=== PATIENT | male | born 1940 | race African-American/Black ===

== ENCOUNTER 2016-12-19 12:37 | Inpatient (IN) | payer OTHER ==
[~2016-12-19] VITALS: Ht 177.8 cm; Wt 97.5 kg
[2016-12-19 12:45] VITALS: BP_SYST 151
[2016-12-19] MEDS ORDERED: LORazepam 2 MG/ML VIAL IVP ONE (13:00)
[2016-12-19] MEDS ORDERED: ASPIRIN 325 MG TABLET PO ONE (13:00)
[2016-12-19] MEDS ORDERED: LORazepam 2 MG/ML VIAL (FOR ER USE) ONE (13:42)
[2016-12-19 13:43] LABS: BASOPHILS # (AUTO) 0.1 K/uL (0.0-0.2); BASOPHILS % (AUTO) 0.9 % (0.0-2.0); EOSINOPHILS # (AUTO) 0.1 K/uL (0.0-0.4); EOSINOPHILS % (AUTO) 1.3 % (0.0-4.0); HEMATOCRIT 39.7 % (36-54); HEMOGLOBIN 12.7 g/dL (14.0-18.0); LYMPHOCYTES # (AUTO) 1.9 K/uL (1.0-5.5); LYMPHOCYTES % (AUTO) 25.2 % (20.5-51.5); MEAN CORPUSCULAR HEMOGLOBIN 27 pg (27-31); MEAN CORPUSCULAR HGB CONC 32 % (32-36); MEAN CORPUSCULAR VOLUME 85 fL (79.0-98.0); MONOCYTES # (AUTO) 0.8 K/uL (0.0-1.0); MONOCYTES % (AUTO) 11.1 % (1.7-9.3); NEUTROPHILS # (AUTO) 4.5 K/uL (1.8-7.7); NEUTROPHILS % (AUTO) 61.5 % (40.0-70.0); PLATELET COUNT (AUTO) 275 K/uL (130-430); RED BLOOD CELL COUNT(AUTO) 4.66 MIL/uL (4.2-6.2); RED CELL DISTRIBUTION WIDTH 12.1 % (9.0-15.0); WHITE BLOOD COUNT (AUTO) 7.4 K/uL (4.8-10.8)
[2016-12-19 13:52] LABS: POTASSIUM 3.8 mmol/L (3.5-5.1)
[2016-12-19 13:59] LABS: INR 1.1 (0.80-1.20); PROTHROMBIN TIME 10.9 SECS (9.5-12.5)
[2016-12-19 14:04] LABS: ANION GAP 9 (5-15); CALCIUM 8.6 mg/dL (8.4-11.0); CHLORIDE 101 mmol/L (98-107); CREATININE 2.06 mg/dL (0.55-1.30); GLUCOSE 103 mg/dL (70-99); SODIUM SERUM 138 mmol/L (136-145); UREA NITROGEN, BLOOD 26 mg/dL (8-21)
[2016-12-19 14:08] LABS: ALANINE AMINOTRANSFERASE 26 U/L (12-78); ALBUMIN 3.4 g/dL (3.4-4.8); ASPARTATE AMINOTRANSFERASE 22 U/L (10-37); TOTAL BILIRUBIN 0.7 mg/dL (0.0-1.0)
[2016-12-19] MEDS ORDERED: ACETAMINOPHEN 325 MG TABLET PO PRN (15:45)
[2016-12-19 15:59] VITALS: BP_SYST 141
[2016-12-19 16:00] VITALS: BP_SYST 141
[2016-12-19] MEDS ORDERED: CARISOPRODOL 350 MG TABLET PO PRN (18:00)
[2016-12-19] MEDS: PANTOPRAZOLE SODIUM 40 MG TAB PO SCH (18:30)
[2016-12-19] MEDS ORDERED: ZOLPIDEM TARTRATE 5 MG TABLET PO PRN (18:30)
[2016-12-19 20:00] VITALS: BP_SYST 139
[2016-12-19] MEDS: traMADol HCL HCL 50 MG TABLET (ULTRAM) PO PRN ×3 (21:03→22:38)
[2016-12-19] MEDS ORDERED: SENNOSIDES 8.6 MG TABLET PO PRN (21:30)
[2016-12-19] MEDS ORDERED: SENNOSIDES 8.6 MG TABLET PO ONE (21:30)
[2016-12-20 04:00] VITALS: BP_SYST 128
[2016-12-20] MEDS: traMADol HCL HCL 50 MG TABLET (ULTRAM) PO PRN ×2 (04:36→10:04)
[2016-12-20 08:04] LABS: ALANINE AMINOTRANSFERASE 21 U/L (12-78); ANION GAP 9 (5-15); ASPARTATE AMINOTRANSFERASE 17 U/L (10-37); CALCIUM 8.3 mg/dL (8.4-11.0); CHLORIDE 101 mmol/L (98-107); CHOLESTEROL 136 mg/dL (<200); CREATININE 1.82 mg/dL (0.55-1.30); GLUCOSE 117 mg/dL (70-99); HDL CHOLESTEROL 35 mg/dL (>45); LDL CHOLESTEROL 91 mg/dL (<100); POTASSIUM 3.9 mmol/L (3.5-5.1); SODIUM SERUM 137 mmol/L (136-145); THYROID STIMULATING HORMONE 1.13 uIu/mL (0.34-4.82); TRIGLYCERIDES 96 mg/dL (30-150); UREA NITROGEN, BLOOD 24 mg/dL (8-21)
[2016-12-20 08:10] VITALS: BP_SYST 125
[2016-12-20 08:21] LABS: BASOPHILS % (AUTO) 0.3 % (0.0-2.0); EOSINOPHILS # (AUTO) 0.1 K/uL (0.0-0.4); EOSINOPHILS % (AUTO) 0.9 % (0.0-4.0); HEMATOCRIT 39.8 % (36-54); HEMOGLOBIN 12.9 g/dL (14.0-18.0); LYMPHOCYTES # (AUTO) 1.2 K/uL (1.0-5.5); LYMPHOCYTES % (AUTO) 18.1 % (20.5-51.5); MEAN CORPUSCULAR HEMOGLOBIN 28 pg (27-31); MEAN CORPUSCULAR HGB CONC 32 % (32-36); MEAN CORPUSCULAR VOLUME 87 fL (79.0-98.0); MONOCYTES # (AUTO) 0.6 K/uL (0.0-1.0); MONOCYTES % (AUTO) 9.8 % (1.7-9.3); NEUTROPHILS # (AUTO) 4.7 K/uL (1.8-7.7); NEUTROPHILS % (AUTO) 70.9 % (40.0-70.0); PLATELET COUNT (AUTO) 274 K/uL (130-430); RED BLOOD CELL COUNT(AUTO) 4.58 MIL/uL (4.2-6.2); RED CELL DISTRIBUTION WIDTH 12.2 % (9.0-15.0); WHITE BLOOD COUNT (AUTO) 6.6 K/uL (4.8-10.8)
[2016-12-20] MEDS ORDERED: CLOPIDOGREL BISULFATE 75 MG TABLET PO SCH (09:00)
[2016-12-20] MEDS ORDERED: METOLAZONE 2.5 MG TABLET PO SCH (09:00)
[2016-12-20] MEDS ORDERED: METOPROLOL SUCCINATE 50 MG TAB.SR.24H (TOPROL XL) PO SCH (09:00)
[2016-12-20] MEDS ORDERED: ASPIRIN 81 MG TAB.CHEW PO SCH (09:00)
[2016-12-20] MEDS ORDERED: SIMVASTATIN 40 MG TABLET PO SCH (09:00)
[2016-12-20] MEDS: PANTOPRAZOLE SODIUM 40 MG TAB PO SCH (09:55)
[2016-12-20 11:08] VITALS: BP_SYST 120
[2016-12-20 16:00] VITALS: BP_SYST 125; BP_SYST 133
[2016-12-20 19:27] VITALS: BP_SYST 125
== END 2016-12-20 19:46 | disposition home or self-care (01) | DRG 552 ==
LOC: SED 12:37 → STU 15:43
PROVIDERS: ADMIT Internal Medicine; ATTEND Internal Medicine
DX: M47.892 Other spondylosis, cervical region (principal); E78.00 Pure hypercholesterolemia, unspecified; K44.9 Diaphragmatic hernia without obstruction or gangrene; I25.10 Atherosclerotic heart disease of native coronary artery without angina pectoris; R07.89 Other chest pain; I12.9 Hypertensive chronic kidney disease with stage 1 through stage 4 chronic kidney disease, or unspecified chronic kidney disease; N18.9 Chronic kidney disease, unspecified; K21.9 Gastro-esophageal reflux disease without esophagitis; S13.4XXA Sprain of ligaments of cervical spine, initial encounter; S16.1XXA Strain of muscle, fascia and tendon at neck level, initial encounter; X58.XXXA Exposure to other specified factors, initial encounter; M10.9 Gout, unspecified; Z82.5 Family history of asthma and other chronic lower respiratory diseases; Z95.1 Presence of aortocoronary bypass graft; Z95.5 Presence of coronary angioplasty implant and graft; Y93.89 Activity, other specified; Y92.89 Other specified places as the place of occurrence of the external cause; Y99.8 Other external cause status
CPT/HCPCS: 36415; 71010; 71250-TC; 72141; 80053; 80061; 82550-TC; 83735-TC; 83880; 84443-TC; 84484; 85025; 85379; 85610-TC; 85730-TC; 93005; 96374; 99285; J2060; J7030